=== PATIENT | female | born 1980 | race Caucasian/White ===

== ENCOUNTER 2016-09-08 10:50 | Inpatient (IN) | payer MEDICAID ==
[~2016-09-08] VITALS: Ht 172.7 cm; Wt 84.0 kg
[~2016-09-08 10:50] MED LIST: PERCOCET PO
[2016-09-08 11:06] VITALS: Ht 172.7 cm; Wt 84.0 kg
[2016-09-08 11:07] VITALS: BP 116/64; PULSE 64; RESP 20
[2016-09-08] MEDS ORDERED: LACTATED RINGER'S 1,000 ML IV SCH (11:09)
[2016-09-08 11:30] LABS: ADD SCAN DIFF NO
[2016-09-08] MEDS ORDERED: LIDOCAINE 1% (MPF) 30 ML INJ INJ PRN (11:30)
[2016-09-08] MEDS ORDERED: MISOPROSTOL 200 MCG TAB PR PRN ×2 (11:30→16:30)
[2016-09-08] MEDS ORDERED: METHYLERGONOVINE 0.2 MG INJ IM PRN ×2 (11:30→16:30)
[2016-09-08] MEDS ORDERED: AMPICILLIN 2 GM/NS (PMX) 100 ML IV ONE (11:30)
[2016-09-08] MEDS ORDERED: OXYTOCIN 30 UNITS/LR 500 ML IV SCH ×3 (11:30)
[2016-09-08] MEDS ORDERED: OXYTOCIN 30 UNITS/LR 500 ML IV PRN ×2 (11:30→16:30)
[2016-09-08] MEDS ORDERED: CARBOPROST 250 MCG INJ IM PRN ×2 (11:30→16:30)
[2016-09-08] MEDS ORDERED: IBUPROFEN 600 MG TAB PO PRN (11:30)
[2016-09-08 11:41] LABS: BASOPHILS % 0.4 % (0.0-2.0); EOSINOPHILS % 0.1 % (0.0-7.0); HEMATOCRIT 35.5 % (37.0-47.0); HEMOGLOBIN 11.4 g/dl (12.0-16.0); LYMPHOCYTES # 1.2 10^3/ul (0.8-2.9); LYMPHOCYTES % 11.2 % (15.0-51.0); MEAN CORPUSCULAR HEMOGLOBIN 28.9 pg (29.0-33.0); MEAN CORPUSCULAR HGB CONC 32.1 g/dl (32.0-37.0); MEAN CORPUSCULAR VOLUME 90.1 fl (82.0-101.0); MONOCYTE # 0.5 10^3/ul (0.3-0.9); NEUTROPHIL # 8.8 10^3/ul (1.6-7.5); NEUTROPHILS % 82.8 % (39.0-77.0); PLATELET COUNT 262 10^3/UL (140-415); RED BLOOD COUNT 3.94 10^6/ul (4.20-5.40); RED CELL DISTRIBUTION WIDTH 12.9 % (11.5-14.5); WHITE BLOOD COUNT 10.6 10^3/ul (4.8-10.8)
[2016-09-08 11:55] LABS: INR 0.92; PROTIME 12.4 Sec (12.2-14.2)
[2016-09-08] MEDS ORDERED: CITRIC ACID/NA CITRATE 30 ML CUP PO ONE ×2 (12:30→13:00)
[2016-09-08] MEDS ORDERED: CEFAZOLIN 2 GM/50 ML (PMX) 50 ML IV SCH (12:30)
[2016-09-08] MEDS ORDERED: CITRIC ACID/NA CITRATE 30 ML CUP ONE (12:31)
[2016-09-08] MEDS ORDERED: LACTATED RINGER'S 1,000 ML IV ONE (12:33)
[2016-09-08] MEDS ORDERED: morphine SULFATE/PF (10 MG/10 ML) INJ ONE (12:52)
[2016-09-08 12:54] LABS: PARTIAL THROMBOPLASTIN TIME 24.6 Sec (25.0-35.0)
[2016-09-08] MEDS ORDERED: DIPHENHYDRAMINE 50 MG INJ IV PRN ×2 (13:00)
[2016-09-08] MEDS ORDERED: MEPERIDINE 25 MG INJ IV PRN (13:00)
[2016-09-08] MEDS ORDERED: ONDANSETRON 4 MG INJ IV PRN ×2 (13:00)
[2016-09-08] MEDS ORDERED: NALOXONE (0.4 MG/ML) INJ IV PRN (13:00)
[2016-09-08] MEDS ORDERED: EPHEDrine SULFATE 50 MG/5 ML SYG IV PRN (13:00)
[2016-09-08] MEDS ORDERED: MIDAZOLAM 1 MG/ML 2 ML INJ IV PRN (13:00)
[2016-09-08] MEDS ORDERED: HYDROmorphONE 1 MG/ML SYG IV PRN ×2 (13:00)
[2016-09-08] MEDS ORDERED: ZOLPIDEM 5 MG TAB PO PRN (13:00)
[2016-09-08] MEDS ORDERED: MIDAZOLAM 1 MG/ML 2 ML INJ ONE (13:18)
[2016-09-08] MEDS ORDERED: ONDANSETRON 4 MG INJ ONE (13:18)
[2016-09-08] MEDS ORDERED: OXYTOCIN 10 UNIT INJ ONE ×2 (13:29→13:57)
[2016-09-08] MEDS ORDERED: OXYTOCIN 30 UNITS/LR 500 ML IV ONE (13:29)
--- NOTE | 2016-09-08 14:35 | HP ---
Date/Time of Note Date/Time of Note DATE: 09/08/16 TIME: 14:15 OB - History Hx of Present Free Text/Dictation 35 years old female 38 weeks and 3 days , ab/1 admitted to [facility] labor and delivery room in active labor admission examination cervical dilatation 5-6 cm 100% effaced kaity breech presentation at -1 station, patient is being prepared to undergo a primary C- section due to breech presented This patient has been under the care of the [employer] [employer] [facility] medical group her course was not complicated with gestational diabetes or -induced hypertension [employer] history [place] at age 12 regular period. Every 28 days lasting 4-5 days history of 2 normal vaginal delivery and one a spontaneous , Allergies denies allergy to any known medication Social habit Denies a smoking or drinking Family history unremarkable Review of system within normal Physical examination 5 feet 8 185 pounds Temperature 97.5 pulse 78 respirations 17 blood pressure 100/64 Head ears nose and throat negative Neck supple no thyromegaly Lungs clear to P/A Heart normal sinus rhythm no murmur Breast compatible with the state of the no abnormal palpable mass no nipple retraction no axillary adenopathy Abdomen fundal height 37 cm from symphysis pubis we did Patrice maneuvers breech presentation Pelvic exam normal vaginal introitus cervix 7 cm dilated kaity breech presentation at -1 station Extremities no edema no varicosities Impression intrauterine at 38 weeks and 3 days breech presentation in active labor Plan primary , patient informed of complication of surgery including bowel and bladder injury hemorrhage wound infection wound hematoma and she is willing to go ahead with this procedure. Estimated Due Date: Sep 19, 2016 : 4 Para: 2 Spontaneous : 1 Care: Good Care Obstetrical Complications: None Medical Complications: None Past Family/Social History * Past Medical, Surgical, Family and Obstetric Histories reviewed from chart. Rubella: immune RPR/VDRL: Negative GBS Status: Negative HBsAG: Negative OB Admission Exam Vital Signs Vital Signs Vital Signs Date Time Temp Pulse Resp B/P Pulse Ox O2 Delivery O2 Flow Rate FiO2 09/08/16 11:07 97.3 64 20 116/64 Room Air Last 72 hours Lab Results CBC & BMP 09/08/16 11:15 ALFONSO ANGELA MD Sep 08, 2016 14:30
[2016-09-08] MEDS ORDERED: AMPICILLIN 1 GM/NS (PMX) 50 ML IV SCH (15:30)
--- NOTE | 2016-09-08 15:47 | OPR ---
DATE OF OPERATION: 09/08/2016 PREOPERATIVE DIAGNOSIS: Intrauterine at 38 weeks 3 days, breech presentation, in active l abor. POSTOPERATIVE DIAGNOSIS: Intrauterine at 38 weeks 3 days, breech presentation, in active labor. PROCEDURE PERFORMED: Primary transverse low cervical section. SURGEON: Alfonso Angela MD PIPE CLEANING MACHINE OPERATOR: Donal Ramos MD ANESTHESIA: Spinal. ANESTHESIOLOGIST: Ti Sherman MD FINDINGS: Live baby girl with the 9 and 9. DETAILS OF THE PROCEDURE: Under satisfactory spinal anesthesia, the patient was prepped and draped and placed in supine position, tilted to the left. Pfannenstiel incision was made, incision carried through the subcutaneous tissue. Bleeders brought under control with electrocautery. Fascia incis ed to the length of the incision. Rectus muscle from the fascia, divided in midline. Per itoneum exposed, entered through a transverse incision. Exploration of abdomen: Gravid uterus, nor mal-appearing tubes and ovaries. Bladder flap was developed. Transverse incision was made in the t hinned out lower segment of the uterus. Amniotic sac ruptured. Scant amount of amniotic fluid note d. Baby girl was delivered from kaity breech presentation. Shoulders delivered without any difficu lty. Head delivered with Mauriceau maneuver. Nasal oropharyngeal suction was performed. Baby hand ed to the team for immediate attention. The patient received 20 units of Pitocin. Placent a delivered manually intact. Uterine cavity cleaned with wet sponge and drainage established. Uter us closed in 2 layers using Monocryl #1 in continuous fashion. Peritoneal cavity irrigated with war m saline. Sponge, needle and instrument reported to be correct. Abdominal peritoneum closed with 2-0 chromic catgut continuously. Rectus muscle approximated with 2 interrupted 2-0 chromic catgut. Fascia closed with #1 PDS in a continuous fashion. Subcutaneous t issue approximated with 2-0 chromic catgut. The skin closed with gavino. Estimated blood loss 600 mL. Urine bag contained 200 mL of clear urine. The patient tolerated the procedure well, transfer red to recovery room in a good condition. Dictated By: ALFONSO ANGELA MD HF/NTS Conf#: [id number] DID#: [id number]
[2016-09-08] MEDS ORDERED: LANOLIN 7 GM TUBE TOP PRN (16:30)
[2016-09-08] MEDS ORDERED: OXYCODONE/ACETAMINOPHEN (5/325) TAB PO PRN (16:30)
[2016-09-08] MEDS ORDERED: ACETAMINOPHEN/CODEINE #3 TAB PO PRN ×2 (16:30)
[2016-09-08] MEDS ORDERED: CEFAZOLIN 1 GM/50 ML (PMX) 50 ML IVPB SCH (16:30)
[2016-09-08 16:55] VITALS: BP 103/63; PULSE 61; RESP 18
[2016-09-08] MEDS: OXYTOCIN 30 UNITS/LR 500 ML IV SCH ×2 (19:00→23:34)
[2016-09-09] VITALS: BP 100/55; PULSE 69; RESP 18
[2016-09-09] MEDS: KETOROLAC 30 MG INJ IV PRN ×2 (01:35→11:15)
[2016-09-09 04:00] VITALS: BP 102/59; PULSE 68; RESP 18
[2016-09-09] MEDS: LACTATED RINGER'S 1,000 ML IV SCH ×2 (06:04→10:00)
[2016-09-09] MEDS: OXYTOCIN 30 UNITS/LR 500 ML IV SCH ×3 (07:00→12:23)
[2016-09-09 07:10] LABS: ADD SCAN DIFF NO
[2016-09-09 07:12] LABS: BASOPHILS % 0.2 % (0.0-2.0); EOSINOPHILS % 0.2 % (0.0-7.0); HEMATOCRIT 28.4 % (37.0-47.0); HEMOGLOBIN 9.3 g/dl (12.0-16.0); MEAN CORPUSCULAR HEMOGLOBIN 29.2 pg (29.0-33.0); MEAN CORPUSCULAR HGB CONC 32.7 g/dl (32.0-37.0); MEAN CORPUSCULAR VOLUME 89.3 fl (82.0-101.0); MONOCYTE # 0.8 10^3/ul (0.3-0.9); MONOCYTES % 6.4 % (0.0-11.0); NEUTROPHIL # 10.4 10^3/ul (1.6-7.5); NEUTROPHILS % 84.8 % (39.0-77.0); PLATELET COUNT 216 10^3/UL (140-415); RED BLOOD COUNT 3.18 10^6/ul (4.20-5.40); RED CELL DISTRIBUTION WIDTH 12.8 % (11.5-14.5); WHITE BLOOD COUNT 12.3 10^3/ul (4.8-10.8)
[2016-09-09 08:00] VITALS: BP 106/57; RESP 18
[2016-09-09] MEDS: SENNA/DOCUSATE NA (8.6MG/50MG) TAB PO SCH ×2 (08:55→21:56)
--- NOTE | 2016-09-09 10:21 | QN ---
Documentation Comment POD#1 is stable afebrile tolerates diet No VB +flatus + Adequate urine Asymptomatic no sign of depression VS Stable Gen NAD Abd soft NT ND Dressing to be removed Genitalia No blood at perinium --->Discharge plan tomorrow --->Repeat CBC at 2 PM TERENCE COLVNI M.D. Sep 09, 2016 10:21
[2016-09-09 12:00] VITALS: BP 106/75; PULSE 62; RESP 18
[2016-09-09 15:30] VITALS: BP 98/58; PULSE 71; RESP 18
[2016-09-09] MEDS: IBUPROFEN 600 MG TAB PO SCH ×2 (17:35→23:53)
[2016-09-09 19:30] VITALS: BP 94/52; PULSE 76; RESP 18
[2016-09-09] MEDS ORDERED: INFLUENZA VIRUS VACCINE 0.5 ML SYG IM* ONE (19:30)
[2016-09-10 04:00] VITALS: BP 132/80; PULSE 66; RESP 18
[2016-09-10] MEDS: IBUPROFEN 600 MG TAB PO SCH ×4 (05:54→23:43)
[2016-09-10 08:00] VITALS: BP 83/51; PULSE 62; RESP 16
[2016-09-10] MEDS: SENNA/DOCUSATE NA (8.6MG/50MG) TAB PO SCH ×2 (08:55→21:19)
[2016-09-10] MEDS: OXYCODONE/ACETAMINOPHEN (5/325) TAB PO PRN ×2 (08:55→16:55)
--- NOTE | 2016-09-10 09:21 | PN ---
Date/Time of Note Date/Time of Note DATE: 09/10/16 TIME: 09:20 OB Subjective Subjective Subjective Post day 2 Afebrile vital signs are stable abdomen soft incision dry healing well bowel sounds. No bowel movement extremities normal fleets enema recommended plan of a.m. discharge discussed ALFONSO ANGELA MD Sep 10, 2016 09:21
[2016-09-10] MEDS ORDERED: NA PHOSPHATE/BIPHOS 133 ML ENEMA PR ONE (09:30)
[2016-09-10 16:00] VITALS: BP 95/51; PULSE 64; RESP 16
[2016-09-10 19:30] VITALS: BP 97/60; PULSE 72; RESP 18
[2016-09-11 04:00] VITALS: BP 108/62; PULSE 79; RESP 18
[2016-09-11] MEDS: IBUPROFEN 600 MG TAB PO SCH ×2 (05:50→12:00)
[2016-09-11 07:50] VITALS: BP 96/52; PULSE 69; RESP 16
[2016-09-11] MEDS: SENNA/DOCUSATE NA (8.6MG/50MG) TAB PO SCH (08:50)
[2016-09-11] MEDS ORDERED: DIPHTH/TET/ACEL PERTUSS (ADULT) 0.5 ML VIAL IM* ONE (09:00)
--- NOTE | 2016-09-11 09:35 | PD.PPDC ---
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 Discharge Instruction Condition Patient Condition: Good Diet Diet: Resume Regular Diet Activity/Restrictions Activity: Normal Activity May Shower Restrictions: No Exercising No Lifting No Driving No Sexual Activity Nothing in the Vagina No [place] No Tampons, douche Wound/Drain Care Instructions Wound/Drain Care Instructions: Remove Steri Strips in 1 week Follow-up Follow-up with Physician: Day/Days Provider Information: Appointment office in 3 days to discontinue gavino Return to clinic for [facility] [employer] [employer] [employer]LE[employer] Instructions: Fever greater than 101 Worsening abdominal pain Excessive Vaginal Bleeding More than 2 pads per hour Unable to tolerate diet OB Instructions: Breast Tenderness Blurried Vision Headache Surgical Instructions: Incisional Drainage Incisional Redness ALFONSO ANGELA MD Sep 11, 2016 09:35
--- NOTE | 2016-09-11 09:43 | DS ---
Date/Time of Note Date/Time of Note DATE: 09/11/16 TIME: 09:37 Discharge Summary Admission/Discharge Info Admit Date/Time 35 years old female 4 para 2 SAB 1 admitted to [facility] in active labor at 38 weeks and 4 days with breech presentation underwent a primary transverse low cervical section patient's postoperative course in the hospital was uneventful did not spiked temp or having problem with bowel function or urination on the third postoperative day incision inspected found free of inflammation and infection patient discharged home with recommendation to make appointment in 3days to discontinue gavino at the time of discharge patient's condition was satisfactory. Discharge Date/Time 09/11/16 9:40 Final Diagnosis Term breech presentation primary Patient Condition: Good Procedures Primary Hx of Present Illness 38 weeks 4 days with breech presentation required primary section Hospital Course Uneventful Home Meds Discontinued Scripts Oxycodone Hcl/Acetaminophen (Percocet) 1 Tab Tab, 2 TAB PO Q6H Y for PAIN, #25 TAB Prov:RONNY DEVLIN 11/12/14 Follow-up Plan Appointment in 3 days to discontinue gavino in the office ALFONSO ANGELA MD Sep 11, 2016 09:43
== END 2016-09-11 14:21 | disposition home or self-care (01) | DRG 766 ==
LOC: L-D 10:50 → OBT 10:50 → L-D 10:55 → PP1 17:00
PROVIDERS: ADMIT Obstetrics & Gynecology; ATTEND Obstetrics & Gynecology
PROC: 10D00Z1 Extraction of Products of Conception, Low, Open Approach (ICD-10-PCS; principal; 2016-09-08 14:00)
DX: O32.1XX0 Maternal care for breech presentation, not applicable or unspecified (principal); Z37.0 Single live birth; Z3A.38 38 weeks gestation of pregnancy
CPT/HCPCS: 85025; 85610; 85730; 86592; 86850; 86900; 86901; 87340; 90686; 90715; 99464; G0463; J0690; J1885; J2250; J2274; J2405; J2590; J7120

== ENCOUNTER 2018-07-17 11:41 | Emergency (ER) | payer MEDICAID ==
[~2018-07-17] VITALS: Wt 66.8 kg
[2018-07-17 11:44] VITALS: BP 117/75; PULSE 105; RESP 18
[2018-07-17] MEDS ORDERED: ONDANSETRON (ODT) 4 MG TAB ODT STA (13:16)
[2018-07-17] MEDS ORDERED: HYDROCODONE/APAP (5/325) TAB PO ONE (13:30)
[2018-07-17] MEDS ORDERED: HYDR-4011 PO (13:32)
[2018-07-17] MEDS ORDERED: NAPR-985 PO (13:32)
--- NOTE | 2018-07-17 13:58 | ERD ---
ER Documentation Chief Complaint Chief Complaint JAMILA FALL HAS LEFT ARM/SHOULDER PAIN HPI 37-year-old female presenting with pain to left shoulder. Patient was cleaning the toilet when bending over and putting weight on her shoulder and then tried cleaning the window with pain to her shoulder. Patient denies any falls. Denies any numbness or tingling. Has pain with movements. Has not taken medications for symptoms. Denies other medical problems. NKDA. Surgical history denies. Social history denies ROS All systems reviewed and are negative except as per history of present illness. Medications Home Meds Active Scripts Hydrocodone/Acetaminophen (Ambridge 5-325 Tablet) 1 Each Tablet, 1 TAB PO Q6H PRN for PAIN, #5 TAB Prov:KISHAN GOMEZ PA-C 07/17/18 Naproxen* (Naprosyn*) 500 Mg Tablet, 500 MG PO BID PRN for PAIN AND/OR INFLAMMATION, #30 TAB Prov:KISHAN GOMEZ PA-C 07/17/18 Allergies Allergies: Coded Allergies: No Known Allergies (Verified Allergy, Unknown, 03/22/16) PMhx/Soc History of Surgery: No Anesthesia Reaction: No Hx Neurological Disorder: No Hx Respiratory Disorders: No Hx Cardiac Disorders: No Hx Psychiatric Problems: No Hx Miscellaneous Medical Probl: No Hx Alcohol Use: No Hx Substance Use: No Hx Tobacco Use: No FmHx Family History: No diabetes, No coronary disease, No other Physical Exam Vitals Vital Signs Date Temp Pulse Resp B/P (MAP) Pulse Ox O2 O2 Flow FiO2 Time Delivery Rate 07/17/18 98.7 105 18 117/75 99 11:44 (89) Physical Exam GENERAL: The patient is well-appearing, well-nourished, in no acute distress CHEST: Clear to auscultation bilaterally. There are no rales, wheezes or rhonchi. HEART: Regular rate and rhythm. No murmurs, clicks, rubs or gallops. No S3 or S4. EXTREMITIES: Tender to palpation of the left shoulder with no obvious deformity. Limited range of motion secondary to pain. Pain is primarily elicited over the AC joint. No bony step-offs or tenting noted to the clavicle. NEUROLOGIC: Sensation grossly intact. SKIN: There is no apparent rash or petechiae. The skin is warm and dry. Results 24 hrs Current Medications Medications Dose Sig/Debbie Start Time Status Last (Trade) Ordered Route PRN Stop Time Admin Dose Reason Admin 1 tab ONCE ONCE 07/17/18 DC 07/17/18 Acetaminophen PO 13:30 13:23 / 07/17/18 13:31 Hydrocodone Bitart (Ambridge (5/325)) Ondansetron 4 mg ONCE STAT 07/17/18 DC 07/17/18 HCl (Zofran ODT 13:16 13:22 Odt) 07/17/18 13:17 Procedures/MDM DIAGNOSTIC IMAGING REPORT Patient: LYNNE MONTOYA : 1980 Age: 37 Sex: F MR #: [id number] DOS: 07/17/18 1240 Ordering MD: SOHAM GOMEZ PA-C Location: [facility] Room/Bed: PROCEDURE: XR Left Shoulder. CLINICAL INDICATION: Left shoulder pain TECHNIQUE: 3 views of the left shoulder are available for review. COMPARISON: None available FINDINGS: There is no acute fracture. Alignment is normal. Joint spaces are preserved. Soft tissues are grossly unremarkable. IMPRESSION: 1. No radiographic evidence of acute osseous abnormality. 37-year-old female presenting with shoulder pain. I have low suspicion for acute fracture dislocation. I have low suspicion for tendon or ligament rupture. Patient likely has AC joint sprain secondary to her movement earlier today. Patient is discharged stricter precautions. Patient is told if symptoms change or worsen to return immediately to the ER.MDM: All questions answered at discharge Departure Diagnosis: Primary Impression: Pain of left arm Condition: Stable Patient Instructions: Ac Joint Sprain Referrals: [facility] YOU HAVE RECEIVED A MEDICAL SCREENING EXAM AND THE RESULTS INDICATE THAT YOU DO NOT HAVE A CONDITION THAT REQUIRES URGENT TREATMENT IN THE EMERGENCY DEPARTMENT. FURTHER EVALUATION AND TREATMENT OF YOUR CONDITION CAN WAIT UNTIL YOU ARE SEEN IN YOUR DOCTORS OFFICE WITHIN THE NEXT 1-2 DAYS. IT IS YOUR RESPONSIBILITY TO M JOHNNIE AN APPOINTMENT FOR FOLOW-UP CARE. IF YOU HAVE A PRIMARY DOCTOR --you should call your primary doctor and schedule an appointment IF YOU DO NOT HAVE A PRIMARY DOCTOR YOU CAN CALL OUR PHYSICIAN REFERRAL HOTLINE AT IF YOU CAN NOT AFFORD TO SEE A PHYSICIAN YOU CAN CHOSE FROM THE FOLLOWING [facility] [address] [facility]. [facility] [address] [facility] [facility] [address] [facility] [address] [facility] [address] [facility]. [facility] [address] [facility] [facility] Hours: Mon-Fri 9:00 AM - 5:00 PM Additional Instructions: FOLLOW UP WITH YOUR PRIMARY CARE PHYSICIAN TOMORROW.Return to this facility if you are not improving as expected. KISHAN GOMEZ PA-C Jul 17, 2018 13:58
== END 2018-07-17 16:09 | disposition home or self-care (01) ==
LOC: FTE 11:41
DX: M79.602 Pain in left arm (principal)
CPT/HCPCS: 73030; Z7610